=== PATIENT | female | born 1995 | race Two or more races ===

== ENCOUNTER 2017-05-06 22:40 | Emergency (ER) | payer SELFPAY ==
[~2017-05-06] VITALS: Ht 170.2 cm; Wt 54.4 kg
[2017-05-06 22:51] VITALS: BP 112/76
[2017-05-06] MEDS ORDERED: Cephalexin 500mg cap ORAL ONE (23:30)
[2017-05-07] MEDS ORDERED: KEFLEX500 MG ORAL (00:07)
[2017-05-07] MEDS ORDERED: PHENAZOPYRIDIN200 MG ORAL (00:07)
--- NOTE | 2017-05-07 00:07 | Emergency Room Report ---
History of Present Illness General Chief Complaint: Female Urogenital Problems Source: Patient Present Illness HPI Is a 21-year-old female with no past medical history. She presents with chief complaint of dysuria frequency on and off for last 2-3 weeks. Worse the last couple days. No blood. No discharge. No back pain or fever. Has previous UTI in the past and said it felt like this. No other complaint. Allergies: Coded Allergies: No Known Allergies (Unverified , 05/06/17) Patient History Past Medical History: none, see triage record, old chart reviewed Past Surgical History: none Pertinent Family History: none Social History: Denies: smoking Last Menstrual Period: April 13, 2017 Now: No Immunizations: other Reviewed Nursing Documentation: PMH: Agreed, PSxH: Agreed Nursing Documentation-PMH Past Medical History: No Stated History Review of Systems Eye: Denies: blurred vision, eye pain ENT: Denies: ear pain, nose congestion, throat swelling Respiratory: Denies: cough, shortness of breath Cardiovascular: Denies: chest pain, palpitations Gastrointestinal: Denies: abdominal pain, diarrhea, nausea, vomiting Genitourinary: Reports: dysuria, frequency, urgency Musculoskeletal: Denies: back pain, joint pain Skin: Denies: rash Neurological: Denies: headache, numbness Endocrine: Denies: increased thirst, increased urine Hematologic/Lymphatic: Denies: easy bruising All Other Systems: negative except mentioned in HPI Physical Exam Vital Signs Date Time Temp Pulse Resp B/P Pulse Ox O2 Delivery O2 Flow Rate FiO2 05/06/17 22:48 86 14 112/76 100 Room Air 05/06/17 22:51 97.6 vitals normal Sp02 EP Interpretation: reviewed, normal General Appearance: well appearing, no apparent distress, alert Head: normocephalic, atraumatic Eyes: bilateral eye EOMI, bilateral eye PERRL ENT: hearing grossly normal, normal pharynx Neck: full range of motion, supple, no meningismus Respiratory: chest non-tender, lungs clear, normal breath sounds Cardiovascular #1: regular rate, rhythm, no murmur Gastrointestinal: normal bowel sounds, non tender, no mass, no organomegaly, no bruit, non-distended Musculoskeletal: back normal, gait/station normal, normal range of motion Psychiatric: mood/affect normal Skin: warm/dry Medical Decision Making Diagnostic Impression: Primary Impression: UTI (urinary tract infection) Qualified Codes: N30.00 - Acute cystitis without hematuria ER Course Patient with UTI symptoms. No evidence of pyelonephritis. No evidence of ectopic. We'll discharge home. Last Vital Signs Date Time Temp Pulse Resp B/P Pulse Ox O2 Delivery O2 Flow Rate FiO2 05/06/17 22:51 97.6 86 14 112/76 100 Room Air Status: improved Disposition: HOME, SELF-CARE Condition: Stable Scripts Phenazopyridine Hcl* (PYRIDIUM*) 200 Mg Tablet 200 MG ORAL THREE TIMES A DAY, #6 TAB 0 Refills Prov: FRANKIE SILVERIO M.D. 05/07/17 Cephalexin* (KEFLEX*) 500 Mg Capsule 500 MG ORAL TID, #21 CAP 0 Refills Prov: FRANKIE SILVERIO M.D. 05/07/17 Patient Instructions: Urinary Tract Infection Additional Instructions: Followup with your Dr. in 2-3 days. Return if symptom worsen. FRANKIE SILVERIO M.D. May 07, 2017 00:07
[2017-05-07 00:13] VITALS: BP 110/74
== END 2017-05-07 00:13 | disposition home or self-care (01) ==
LOC: EMR 23:35
DX: N30.00 Acute cystitis without hematuria (principal)
CPT/HCPCS: 87086; 87181; 99284